=== PATIENT | female | born 1995 | race Two or more races ===

== ENCOUNTER 2024-07-27 16:52 | Inpatient (IN) | payer OTHER ==
[~2024-07-27] VITALS: Ht 165.1 cm; Wt 1.8 kg
[2024-07-27 17:24] VITALS: BP 120/77
[2024-07-27] MEDS ORDERED: TERBUTALINE SULFATE 1 MG/ML AMPUL SUBCUTANEO SCH (17:30)
[2024-07-27] MEDS ORDERED: CEFAZOLIN SODIUM 1,000 MG VIAL IV SCH (17:30)
[2024-07-27] MEDS ORDERED: RINGERS SOLUTION,LACTATED 1,000 ML IV SCH (17:30)
[2024-07-27] MEDS ORDERED: BETAMETHASONE ACETATE,SOD PHOS 30 MG/5 ML ML IM STA (18:24)
[2024-07-27 18:44] LABS: HEMATOCRIT 31.6 % (36.0-45.00); HEMOGLOBIN 10.1 g/dL (12.0-15.00); MEAN CELL VOLUME 76.1 fL (80.00-100.00); MEAN CORPUSCULAR HEMOGLOBIN 24.4 pg (27.00-32.0); PLATELET COUNT 234 K/uL (150-450); RED BLOOD COUNT 4.15 M/uL (4.00-6.00); RED CELL DISTRIBUTION WIDTH 18.7 % (11.5-14.5)
[2024-07-27 18:47] LABS: URINE APPEARANCE Clear; URINE BILIRRUBIN Negative (NEGATIVE); URINE BLOOD Negative; URINE COLOR Yellow; URINE GLUCOSE Negative (NEGATIVE); URINE KETONE Negative (NEGATIVE); URINE LEUKOCYTE Negative; URINE NITRATE Negative; URINE PROTEIN Negative (NEGATIVE); URINE UROBILINOGEN 0.2 E.U./dl
[2024-07-27 18:48] LABS: URINE BACTERIA 105.2 uL (0.0-1933); URINE EPITHELIAL CELLS 7.2 uL (0.0-38.8)
[2024-07-27 19:03] LABS: URINE WBC 1.5 uL (0.0-23.2)
[2024-07-27 19:08] LABS: INR < 0.93; PARTIAL THROMBOPLASTIN TIME 26.5 SECONDS (22.0-34.0)
[2024-07-27] MEDS ORDERED: PRENATAL + DHA1 EAC1 PO (20:22)
[2024-07-27] MEDS ORDERED: FERRLECIT62.5 MG/2 IV (20:22)
[2024-07-27] MEDS ORDERED: AMPICILLIN SODIUM 2,000 MG VIAL IV ONE (20:45)
[2024-07-27 23:37] VITALS: BP 116/73
[2024-07-28] MEDS ORDERED: AMPICILLIN SODIUM 1,000 MG in DEXTROSE 5 % IN WATER 100 ML IV SCH (02:00)
[2024-07-28] MEDS ORDERED: AMPICILLIN SODIUM 1,000 MG VIAL IV SCH (02:00)
[2024-07-28 03:02] VITALS: BP 115/60; O2SAT 99
[2024-07-28] MEDS ORDERED: CEFAZOLIN SODIUM 1,000 MG VIAL IV SCH ×2 (06:15→12:00)
[2024-07-28] MEDS ORDERED: BETAMETHASONE ACETATE,SOD PHOS 30 MG/5 ML ML IM NR (07:15)
[2024-07-28 07:25] VITALS: BP 110/74
[2024-07-28] MEDS ORDERED: ERYTHROMYCIN BASE OPHT 1GM EACH TUBE OP ONE ×2 (07:34→07:36)
[2024-07-28] MEDS ORDERED: OXYTOCIN 10 UNITS/ML VIAL ONE (07:34)
[2024-07-28] MEDS ORDERED: CARBOPROST TROMETHAMINE 250 MCG/ML AMPUL IM ONE (08:10)
[2024-07-28 11:33] VITALS: BP 139/78
[2024-07-28 11:57] LABS: BASO % 0.2 % (0.1-1.2); HEMATOCRIT 38.8 % (34.1-44.9); HEMOGLOBIN 12.3 g/dL (11.2-15.7); LYMPH # 0.76 (1.18-3.74); LYMPH % 5.9 % (19.3-53.1); MEAN CORPUSCULAR HEMOGLOBIN 24.8 pg (25.6-32.2); MONO # 0.34 (0.24-0.82); MONO % 2.6 % (4.7-12.5); NEUT % 90.4 % (34.0-71.1); PLATELET COUNT 208 K/uL (163-369); RED BLOOD COUNT 4.96 M/uL (3.93-5.22); RED CELL DISTRIBUTION WIDTH 23.1 % (11.6-14.4)
[2024-07-28] MEDS ORDERED: KETOROLAC TROMETHAMINE 30 MG VIAL IM SCH (12:00)
[2024-07-28] MEDS ORDERED: PROMETHAZINE HCL 25 MG/ML AMPUL IV SCH (12:00)
[2024-07-28 16:00] VITALS: BP 120/77
[2024-07-29] VITALS: BP 118/78
[2024-07-29 04:30] VITALS: BP 117/78
[2024-07-29] MEDS ORDERED: NAPROXEN 500 MG TABLET PO SCH (08:00)
[2024-07-29 08:42] LABS: BASO % 0.2 % (0.1-1.2); EOS # 0.01 (0.04-0.54); EOS % 0.1 % (0.7-7.0); HEMATOCRIT 33.2 % (34.1-44.9); HEMOGLOBIN 10.7 g/dL (11.2-15.7); LYMPH # 1.61 (1.18-3.74); LYMPH % 12.1 % (19.3-53.1); MEAN CORPUSCULAR HEMOGLOBIN 25.8 pg (25.6-32.2); MONO # 1.03 (0.24-0.82); MONO % 7.8 % (4.7-12.5); PLATELET COUNT 210 K/uL (163-369); RED BLOOD COUNT 4.15 M/uL (3.93-5.22); RED CELL DISTRIBUTION WIDTH 23.4 % (11.6-14.4)
[2024-07-29 09:21] VITALS: BP 113/72
[2024-07-29] MEDS ORDERED: IRON FUM,PS/FOLIC/BCOMP,C NO.9 1 CAP CAPSULE PO STA (11:25)
[2024-07-29] MEDS ORDERED: IRON FUM,PS/FOLIC/BCOMP,C NO.9 1 CAP CAPSULE PO SCH (17:00)
[2024-07-29 17:06] VITALS: BP 116/73
[2024-07-29 21:00] VITALS: BP 128/74
[2024-07-30] VITALS: BP 106/66
[2024-07-30 05:00] VITALS: BP 114/74
[2024-07-30 08:00] VITALS: BP 126/81
[2024-07-30 08:01] LABS: BASO % 0.5 % (0.1-1.2); EOS # 0.06 (0.04-0.54); EOS % 0.5 % (0.7-7.0); HEMATOCRIT 31.6 % (34.1-44.9); HEMOGLOBIN 10.1 g/dL (11.2-15.7); LYMPH # 1.95 (1.18-3.74); LYMPH % 16.7 % (19.3-53.1); MEAN CORPUSCULAR HEMOGLOBIN 25.3 pg (25.6-32.2); MONO # 1.14 (0.24-0.82); MONO % 9.8 % (4.7-12.5); NEUT # 8.33 (1.56-6.13); NEUT % 71.5 % (34.0-71.1); PLATELET COUNT 134 K/uL (163-369); RED BLOOD COUNT 3.99 M/uL (3.93-5.22); RED CELL DISTRIBUTION WIDTH 24.4 % (11.6-14.4)
[2024-07-30 16:57] VITALS: BP 102/65
[2024-07-30 20:44] VITALS: BP 125/63
[2024-07-31 00:04] VITALS: BP 125/76
[2024-07-31 05:00] VITALS: BP 115/76
[2024-07-31 07:28] LABS: BASO % 0.4 % (0.1-1.2); EOS # 0.14 (0.04-0.54); EOS % 1.4 % (0.7-7.0); HEMATOCRIT 36.8 % (34.1-44.9); HEMOGLOBIN 11.5 g/dL (11.2-15.7); LYMPH # 1.53 (1.18-3.74); LYMPH % 15.8 % (19.3-53.1); MEAN CORPUSCULAR HEMOGLOBIN 25.3 pg (25.6-32.2); MONO # 0.81 (0.24-0.82); MONO % 8.4 % (4.7-12.5); NEUT # 7.05 (1.56-6.13); NEUT % 73.1 % (34.0-71.1); PLATELET COUNT 162 K/uL (163-369); RED BLOOD COUNT 4.55 M/uL (3.93-5.22)
[2024-07-31 07:49] LABS: RED CELL DISTRIBUTION WIDTH 25.5 % (11.6-14.4)
[2024-07-31 08:00] VITALS: BP 118/81
[2024-07-31 12:00] VITALS: BP 118/81
== END 2024-07-31 16:54 | disposition home or self-care (01) | DRG 788 ==
LOC: LDR 16:52 → OB/GYN 16:52 → O/R 07-28 10:54 → OB/GYN 07-28 11:06
PROVIDERS: ADMIT Specialist; ATTEND Specialist
PROC: 10D00Z1 Extraction of Products of Conception, Low, Open Approach (ICD-10-PCS; principal; 2024-07-28 07:00)
PROC: 4A1HXCZ Monitoring of Products of Conception, Cardiac Rate, External Approach (ICD-10-PCS; 2024-07-29)
DX: O60.14X2 Preterm labor third trimester with preterm delivery third trimester, fetus 2 (principal); O30.033 Twin pregnancy, monochorionic/diamniotic, third trimester; Z3A.34 34 weeks gestation of pregnancy; Z37.2 Twins, both liveborn; O34.211 Maternal care for low transverse scar from previous cesarean delivery